=== PATIENT | male | born 1960 | race Caucasian/White ===

== ENCOUNTER 2017-07-08 10:48 | Emergency (ER) | payer OTHER ==
[~2017-07-08] VITALS: Ht 170.2 cm; Wt 80.6 kg
[2017-07-08 11:08] VITALS: TEMP 36.8; O2SAT 98; Ht 170.2 cm; Wt 80.6 kg
--- NOTE | 2017-07-08 12:13 | EMERGENCY ROOM VISIT NOTE ---
History First contact with patient: 11:22 Chief Complaint: SHORTNESS OF BREATH Stated Complaint: SOB,DIZZY Nursing Triage Summary: triage note: pt reports cough with green sputum x "quite a few days." pt reports shortness of breath. "i am also weak." History of Present Illness The patient is a 56 year old male who presents to the Emergency Room with complaints of productive cough, lightheadedness, generalized fatigue, body aches and decreased appetite. He states that he has had a cough for a few days. He tried Mucinex but this made his symptoms worse. He is unable to sleep or eat due to the cough. He states that today, he had a hard time getting his breath for a few minutes, but this resolved. He has become lightheaded after coughing fits. He has been trying a natural cough medication which includes shelton without relief of the cough. He rates his overall discomfort a 4/10. He denies any recent ill contacts. He denies neck pain/ stiffness, headache, abdominal pain, nausea/vomiting or diarrhea. Review of Systems A complete 10 point review of systems was reviewed with the patient with pertinent positives and negatives as per history of present illness. All else were negative. Past Medical/Surgical History Medical Problems: (1) Psoriasis Social History Smoking Status: Never Smoker Marital Status: Housing Status: lives with family Occupation Status: employed Current/Historical Medications Scheduled Oseltamivir (Tamiflu), 75 MG PO BID Scheduled PRN Hydrocodone W/ Homatropine (Hycodan 5/1.5MG 5 Ml), 5-10 ML PO Q4H PRN for Cough Physical Exam Vital Signs Date Time Temp Pulse Resp B/P (MAP) Pulse Ox O2 Delivery O2 Flow Rate FiO2 07/08/17 12:57 76 122/76 07/08/17 11:25 70 07/08/17 11:08 36.8 78 18 130/86 98 Room Air Physical Exam VITALS: Vitals are noted on the nurse's note and reviewed by myself. Vital signs stable. GENERAL: This is a 56-year-old male, in no acute distress, nondiaphoretic, well- developed well-nourished. SKIN: There are multiple erythematous, scaly patches of skin consistent with psoriasis. EARS: Serous fluid behind the right tympanic membrane. Left tympanic membrane within normal limits. External auditory canals are clear. EYES: Pupils equal round and reactive to light and accommodation. NOSE: Patent, turbinates without inflammation or discharge. MOUTH: Mucous membranes moist. Tonsils are not enlarged. Pharynx without erythema or exudate. NECK: Supple without nuchal rigidity. No lymphadenopathy. HEART: Regular rate and rhythm without murmurs gallops or rubs. LUNGS: Clear to auscultation bilaterally without wheezes, rales or rhonchi. No retractions or accessory muscle use. NEURO: Patient was alert and oriented to person place and time. Medical Decision & Procedures ER Provider Diagnostic Interpretation: CHEST 2 VIEWS ROUTINE CLINICAL HISTORY: cough FLULIKE SYMPTOMS COMPARISON STUDY: No previous studies for comparison. FINDINGS: The cardiac and mediastinal contours are normal. There is no evidence of focal pulmonary consolidation. There is no evidence of failure. No pleural effusions are visualized.[ IMPRESSION: No active disease in the chest. Laboratory Results Test 07/08/17 11:55 Influenza Type A Antigen Neg for Influ A (NEG) Influenza Type B Antigen POS for Influ B (NEG) Medical Decision Differential diagnosis includes influenza, pneumonia, upper respiratory infection, among others. The patient was evaluated as above. Exam is unremarkable. He is in no acute distress. Chest x-ray showed no evidence of pneumonia. Patient had a positive influenza B. He will be prescribed Tamiflu. He was prescribed Hycodan cough syrup for symptomatic relief. Conservative measures were discussed with the patient, including rest, increase fluids, Tylenol and ibuprofen. He will follow -up with his primary care provider as needed. He verbalized understanding of my assessment and treatment plan and was discharged home in good condition. Medication Reconcilliation Current Medication List: was personally reviewed by me Blood Pressure Screening Patient's blood pressure: Normal blood pressure Impression Primary Impression: Influenza Departure Information Dispostion Home / Self-Care Condition GOOD Prescriptions Hydrocodone W/ Homatropine (HYCODAN 5/1.5MG 5 ML) 1 Syp Syp 5-10 ML PO Q4H Y for Cough, #60 ML Prov: Callie Angela PA-C 07/08/17 Oseltamivir (Tamiflu) 75 Mg Cap 75 MG PO BID for 5 Days, #10 CAP Prov: Callie Angela PA-C 07/08/17 Referrals No Doctor, Assigned (PCP) Patient Instructions ED Flu, My [facility] Additional Instructions You were diagnosed with influenza. This is a viral illness which typically last 7-10 days. This is contagious. Make sure that you are washing her hands frequently to prevent spreading this to anyone else. You have been prescribed Tamiflu. This is a an antiviral medication which may help to decrease the length of your symptoms. Take this medication twice daily as prescribed. It may have some side effects, including GI upset. For pain/fever control, you can use the following [id number] medicines ( if >12 yo): - Regular strength (325mg/tab) Tylenol (acetaminophen) 2 tabs every 4-6 hours as needed. Do not exceed 12 tablets in a 24 hour period. Avoid taking more than 4 grams (4000 mg) of Tylenol per day. This includes any other sources of acetaminophen you may take on a regular basis. - Regular strength (200 mg/tab) Advil (ibuprofen) 2-3 tabs every 4-6 hours as needed. Do not exceed a dose of 3200 mg per day. Make sure to rest and drink plenty of fluids. Follow-up with your primary care provider as needed. Return to the emergency department with any worsening shortness of breath, neck pain/stiffness, fevers not controlled by Tylenol or ibuprofen, or any other new/ concerning symptoms.
--- NOTE | 2017-07-08 12:15 | DIAGNOSTIC IMAGING REPORT ---
CHEST 2 VIEWS ROUTINE CLINICAL HISTORY: cough FLULIKE SYMPTOMS COMPARISON STUDY: No previous studies for comparison. FINDINGS: The cardiac and mediastinal contours are normal. There is no evidence of focal pulmonary consolidation. There is no evidence of failure. No pleural effusions are visualized.[ IMPRESSION: No active disease in the chest. Electronically signed by: Prashant Navarro M.D. 07/08/2017 12:14 PM Dictated Date/Time: 07/08/2017 12:14 PM
[2017-07-08 12:30] LABS: INFLUENZA B ANTIGEN POS for Influ B (NEG)
[2017-07-08] MEDS ORDERED: OSEL75CA12 PO (12:43)
[2017-07-08] MEDS ORDERED: HYDR5SYP11 PO (12:43)
[2017-07-08 12:57] VITALS: BP 122/76; PULSE 76
== END 2017-07-08 12:58 | disposition home or self-care (01) ==
LOC: C.EDB 10:49 → C.EDC 12:58
DX: J10.1 Influenza due to other identified influenza virus with other respiratory manifestations (principal); L40.9 Psoriasis, unspecified